=== PATIENT | male | born 1975 | race Caucasian/White ===

== ENCOUNTER → 2023-08-30 11:23 | Outpatient (REF) | payer OTHER, SELFPAY | LOC: RAD 11:23 | PROVIDERS: ATTENDING PHYSICIAN Internal Medicine | DX: M25.561 Pain in right knee (principal); G89.29 Other chronic pain; M79.672 Pain in left foot | CPT/HCPCS: 73564; 73630 ==

== ENCOUNTER 2024-03-08 17:05 | Emergency (ER) | payer OTHER, SELFPAY ==
[2024-03-08 17:11] VITALS: BP 133/88
[2024-03-08 17:42] VITALS: BP 133/90; BMI 28.2
[2024-03-08 17:43] VITALS: BP 133/90
[2024-03-08 17:56] LABS: % Basophils 0.4 % (0-2); % Eosinophils 1.3 % (0-6); % Immature Granulocytes 0.2 % (0-0.5); % Lymphocytes 10.6 % (20.5-51.1); % Neutrophils 72.5 % (42.2-75.2); Absolute Eosinophils 0.1 10^3/uL (0-0.7); Absolute Monocytes 1.3 10^3/uL (0.1-0.6); Absolute Neutrophils 6.5 10^3/uL (1.4-6.5); Hematocrit 37.6 % (39.0-52.0); Hemoglobin 13.3 g/dL (13.0-18.0); Mean Corp Hgb Conc. 35.4 g/dL (33.0-37.0); Mean Corpuscular Hgb 29.5 pg (27.0-31.0); Mean Corpuscular Volume 83.4 fL (80.0-94.0); Mean Platelet Volume 9.9 fL (7.4-10.4); Nucleated Red Blood Cells % 0 % (-); Platelet Count 232 10^3/uL (130-400); Red Blood Cell Count 4.51 10^6/uL (4.70-6.10); Red Cell Dist. Width 12.3 % (11.5-14.5); White Blood Cell Count 8.9 10^3/uL (4.8-10.8)
[2024-03-08 18:00] VITALS: BP 118/93
[2024-03-08 18:12] LABS: ALT (SGPT) 20 U/L (0-50); AST (SGOT) 20 U/L (17-59); Albumin 3.9 g/dl (3.5-5.0); Alkaline Phosphatase 47 U/L (38-126); Blood Urea Nitrogen 13 mg/dl (9-20); Calcium 8.7 mg/dl (8.4-10.2); Carbon Dioxide 28 mmol/L (22-30); Chloride 100 mmol/L (98-107); Estimated Creatinine Clearance > 125 ml/min; Glucose 96 mg/dl (70-99); Potassium 3.7 mmol/L (3.5-5.1); Sodium 138 mmol/L (135-145); Total Bilirubin 0.7 mg/dl (0.2-1.3); Total Protein 6.2 g/dl (6.3-8.2); eGFR > 60.00
[2024-03-08 18:23] LABS: Troponin I < 0.012 ng/ml
[2024-03-08 19:00] VITALS: BP 130/85
--- NOTE | 2024-03-08 19:31 | ED.GENMED ---
History of Present Illness
General
Chief Complaint: Chest Problem
Source: patient
Exam Limitations: none
Time Seen by Provider: 03/08/24 17:59
Nursing documentation reviewed up to this point in time: agreed with
History of Present Illness
History of Present Illness:
Patient presents to ED secondary to 6-day history of fever, chills, intermittent cough, and right-sided chest congestion. Patient states that he is concerned that he may have pneumonia, which he has experienced in the past. Denies sick contact.
Denies back pain. Denies recent travel. Denies nausea, vomiting, or diarrhea. Denies loss of appetite. Denies sore throat. Denies headache. Denies dizziness. Denies rash.
Past History
Past History
ED Past Medical History: Psychiatric
ED Past Surgical History: Appendectomy
Social History
Tobacco: Former smoker
Alcohol: Occasional
Drug: Marijuana (rare)
Review of Systems
Review of Systems
Allergies reviewed?: Yes
All Other Systems: ROS reviewed and negative except as documented in HPI and ROS
Constitutional: Reports fever and chills
EENT: Reports no symptoms
Respiratory: Reports cough; Denies trouble breathing
Cardiac: Reports no symptoms; Denies chest pain or palpitations
ABD/GI: Reports no symptoms; Denies vomiting or diarrhea
Musculoskeletal: Reports no symptoms
Skin: Reports no symptoms
Neurological: Reports no symptoms; Denies dizzy or headache
Phy Exam
Physical Exam
Physical Exam:
Physical Exam
General: no apparent distress, not acutely ill. afebrile
Head: nc/at. eomi
Neck: supple. no meningeal signs.
Heart: s1/s2 regular rate and rhythm, no murmur. equal radial pulses.
Lungs: no acute respiratory distress. rhonchi noted over right lower base.
Abdomen: normal bowel sounds. not tender.
Neuro: alert and oriented. no focal neurological deficits
Skin: no rash
Psychiatric: well kept. interactive and cooperative
Extremities: no edema. no calf tenderness.
Course
Orders/Labs/Results
Orders:
Orders
03/08/24 17:06
Electrocardiogram (*1) Urgent
Reason for Study: Chest Pain
EKG- Treatment ONCE
03/08/24 17:44
CXR2 [CR Chest - 2 Views ] Urgent
Comment:
Reason For Exam: chest pain
03/08/24 17:49
Complete Blood Count/With Diff Urgent
Comprehensive Metabolic Panel Urgent
Troponin I Urgent
03/08/24 19:31
Amoxicillin 875 mg/Clav 125 mg [Augmentin 875 mg/125 mg] 1 tablet PO NOW STA
Prednisone [Deltasone] 50 mg PO NOW STA
03/08/24 19:34
COVID-19 Antigen Urgent
Source: Nasal Swab
Abnormal Lab Results
03/08/24
17:49
RBC 4.51 L 10^6/uL
(4.70-6.10)
Hct 37.6 L %
(39.0-52.0)
Absolute Lymphs (auto) 1.0 L 10^3/uL
(1.2-3.4)
Absolute Monos (auto) 1.3 H 10^3/uL
(0.1-0.6)
Lymphocytes % 10.6 L %
(20.5-51.1)
Monocytes % 15.0 H %
(1.7-9.3)
Total Protein 6.2 L g/dl
(6.3-8.2)
03/08/24 17:49
03/08/24 17:49
Vital Signs
Initial and Last Documented VS:
Initial Vital Signs
Temp Pulse Resp BP Pulse Ox
99.6 F 98 20 133/88 99
03/08/24 17:11 03/08/24 17:11 03/08/24 17:11 03/08/24 17:11 03/08/24 17:11
Last Documented Vital Signs
Temp Pulse Resp BP Pulse Ox
99.6 F 90 17 130/85 95
03/08/24 17:11 03/08/24 19:30 03/08/24 19:15 03/08/24 19:00 03/08/24 19:30
MDM/Problems Addressed
MDM/Problems Addressed:
History, exam, and chest x-ray consistent with pneumonia. Patient otherwise is afebrile, hemodynamically stable, without acute respiratory distress, and nontoxic-appearing. As such, decision made to discharge patient home with oral antibiotics,
i.e. Augmentin, along with short course of prednisone, as well as PCP follow-up as an outpatient. Patient will return to ED with worsening symptoms.
*Critical Care Note
Total Time (30-74mins, 75-104mins- exclusive of procedures): Not Applicable
ED Attending Note
-
Portions of this chart may have been created with voice recognition software.� Occasional wrong word or��sound alike� substitutions may have occurred due to the inherent limitations of voice recognition software.
Discharge Plan
Departure
Patient Disposition: Home (Routine Discharge)
Date of Disposition: 03/08/24
Time of Disposition: 19:32
Patient with high blood pressure during this ER visit?: Yes
Discharge Problem:
Pneumonia
Instructions: Pneumonia, Adult ED
Prescriptions:
New
amoxicillin-pot clavulanate 875-125 mg tablet
1 tab PO Q12H Qty: 13 0RF
prednisone 50 mg Tablet
50 mg PO DAILY Qty: 2 0RF
No Action
azithromycin 250 mg tablet
250 mg PO DAILY 4 Days Qty: 4 0RF
Referrals:
Jose M Fulton MD [Family Provider] -
Activity Restrictions/Additional Instructions:
As discussed, please follow-up with your primary care physician for reevaluation. Your prescriptions have been sent electronically to [facility] in [place].
Interventions
Interventions:
*Risk Screen - Suicide Last Done: 03/08/24 17:11
*General Assessment Last Done: 03/08/24 17:11
*Neglect/Abuse Screening Last Done: 03/08/24 17:11
*ED COVID-19 Vaccine History Last Done: 03/08/24 17:43
*Nursing Disposition Last Done: 03/08/24 19:45
ED- Cardiac Assessment Last Done: 03/08/24 17:45
ED- Pulmonary Assessment Last Done: 03/08/24 17:45
Discharge Date and Time
Discharge Date/Time: 03/08/24 19:46
Print Language: [id number]
[2024-03-08] MEDS: AUGMENTIN 875 MG/125 MG 1 TABLET PO (19:40)
[2024-03-08] MEDS: DELTASONE 50 MG PO (19:40)
[2024-03-08 19:55] LABS: COVID-19 Antigen Negative (Negative)
== END 2024-03-08 19:46 | disposition home or self-care (01) ==
LOC: EMR 17:05
PROVIDERS: EMERGENCY PHYSICIAN Emergency Medicine; FAMILY PHYSICIAN Internal Medicine
DX: J18.9 Pneumonia, unspecified organism (principal); Z87.891 Personal history of nicotine dependence; Z90.49 Acquired absence of other specified parts of digestive tract
CPT/HCPCS: 99283; 71046; 80053; 84484; 85025; 87811; 93005